=== PATIENT | male | born 1960 | race Caucasian/White ===

== ENCOUNTER 2020-08-30 13:34 | Outpatient (RCR) | payer BC, SELFPAY ==
[2020-08-30] MEDS: COVID-19 VACC, MRNA(PFIZER)/PF 30 MCG/0.3 ML SYRINGE IM (09:35)
[2020-09-20] MEDS: COVID-19 VACC, MRNA(PFIZER)/PF 30 MCG/0.3 ML SYRINGE IM (09:06)
== END 2020-08-30 23:59 ==
LOC: IMMUN 13:34
PROVIDERS: PCP Family Medicine; Visit Provider Family Medicine
DX: Z23 Encounter for immunization (principal)
CPT/HCPCS: 0001A; 0002A; 91300

== ENCOUNTER 2020-09-14 10:21 | Day surgery (SDC) | payer BC, SELFPAY ==
--- NOTE | 2020-09-13 09:19 | EKG12_ITS ---
Test Reason : PREOP Blood Pressure : / mmHG Vent. Rate : 064 BPM Atrial Rate : 064 BPM P-R Int : 194 ms QRS Dur : 078 ms QT Int : 418 ms P-R-T Axes : 063 075 070 degrees QTc Int : 431 ms Poor data quality, interpretation may be adversely affected Sinus rhythm with Premature atrial complexes Otherwise normal ECG Confirmed by SHARA FENG, ROSA ISELA ([id number]), newspaper or periodical editor TERA HAQUE ([id number]) on 09/13/2020 1:48:06 PM Referred By: PERRY Confirmed By:ROSA ISELA OLMEDO MD
[2020-09-13 10:04] LABS: Hematocrit 42.4 % (40-54); Hemoglobin 14.1 g/dL (13.0-16.5); Mean Corp Hgb Conc 33.3 g/dL (32-36); Mean Corpuscular Volume 90.2 fL (80-94); Mean Platelet Vol. 10.4 fl (6.2-12.0); Platelet Count 283 K/mm3 (150-450); RBC Distribution Width CV 12.7 % (11.6-14.6); RBC Distribution Width SD 42.1 fl (35.1-43.9); White Blood Count 5.5 K/mm3 (4.4-11.0)
[2020-09-14] VITALS (7 sets, daily range): BP systolic 127–141; BP diastolic 73–89; PULSE 57–72; RESP 16–20; TEMP 36.2–36.8; O2SAT 94–100; BMI 36.4
[2020-09-14] MEDS: Lactated Ringers 1,000 ML 100 ML IV ×2 (11:06→13:15)
[2020-09-14] MEDS: Bupivacaine Mpf 0.5% 30 ML VIAL (12:16)
--- NOTE | 2020-09-14 12:30 | LIP_PTH ---
PATIENT: MEMO GARRIDO LOC: [facility] [place] U#:[id number] AGE/SX: 60/M ROOM: RE09/14/[address]: Dr. Vincenzo Marks MD : 1960 BED: DIS: 09/14/2020 SPEC #: [id number] RECD: 09/14/20 13:55 STATUS: ANTONIO REQ #: [id number] JUAN CARLOS: 09/14/20 12:[address]: Vincenzo Marks DEPT: SURGICAL PATHOLOGY RECD BY: Lydia Cuellar ENTERED: 09/17/20 08:26 SP TYPE: LIPOMA OTHR DR: Dr. Lino Kim MD Tissues: Soft tissues, NOS Procedures: Surgery Specimen Level III HEADER OPERATION: Inguinal hernia with mesh PRE-OP DIAGNOSIS: Left inguinal hernia TISSUE SUBMITTED: Cord lipoma MICROSCOPIC DIAGNOSIS Cord lipoma, excision: Mature adipose tissue consistent with cord lipoma. AM:sarath 09/18/2020 MICROSCOPIC DESCRIPTION Slides are reviewed. GROSS DESCRIPTION Received in fixative is one container labeled with the patient's name and designated cord lipoma. The specimen consists of an irregular piece of yellow adipose tissue measuring 7 x 4 x 0.5 cm. Sections reveal yellow adipose cut surfaces without area of hemorrhage, necrosis or cystic degeneration. Legal Executive Assistant sections are submitted in one cassette. / SJ:sarath 09/17/20 TC:1 CPT: 94527
--- NOTE | 2020-09-14 13:33 | DCINST_ITS ---
Discharge Diet: Light diet - advance as tolerated Discharge Activity: Return to Normal Activity, May Drive - when you are no longer taking narcotic pain medications., May Shower - with the bandage in place 1-2 days after surgery. Lifting Restrictions: 20 pounds for 8 weeks. Additional Activity Instructions:: Climbing stairs is fine, walking is encouraged. Sitting in bed may be uncomfortable. Sitting up using your lateral muscles (sitting up sideways) is usually more comfortable. Do not drive, work heavy equipment of sign legal documents for 24 hours. If your hernia repair was an ingunial repair, you may have scrotal swelling, an ice pack and/or athletic support can provide more comfort. Pain medications may cause nausea, you should typically eat light foods as you take your pain medications. Pain medications may also cause constipation. If you have difficulty with this, discuss with your doctor. Call your doctor if your incision/area has: Continuous Slow Oozing, Sudden Increased Bleeding, Increased Pain/ Swelling, Increased Redness, Foul Smelling Discharge Call your doctor if you observe: Fever of 101 or Higher Suture Line Care: Avoid Pulling/Pushing, Avoid Pinching/Bending Additional Dressing/Incision Instructions:: Leave the operative bandage on for 2-3 days. When you remove the bandage, leave the steri-strips on place until your follow up appointment or they fall off. Allergies/Adverse Reactions: Allergies garlic Allergy (Verified 09/14/20 10:42) Other INTESTINAL DISCOMFORT Penicillins [PCN] Allergy (Verified 09/14/20 10:42) Rash Sulfa (Sulfonamide Antibiotics) Allergy (Verified 09/14/20 10:42) Rash Medications to take at Discharge Albuterol Aerosols [Ventolin Aerosols] 2.5 mg INHALATION Q6H PRN PRN 09/11/20 Fenofibrate 160 mg PO DAILY 09/11/20 Oxycodone HCl/Acetaminophen [Percocet 5/325] 1 - 2 tablet PO Q4H PRN PRN 6 Days #30 tablet 09/14/20 The following prescriptions were given: Oxycodone HCl/Acetaminophen [Percocet 5/325] 1 - 2 tablet PO Q4H PRN PRN 6 Days #30 tablet PRN Reason: Pain 1-10 Or Fever Transmission Status: Sent to [facility] Primary Care Physician: Lino Kim MD [Primary Care Provider] - Test Results: Test results from this visit will be discussed in further detail at your follow- up appointment, if applicable. Please Follow Up With: Mouna Weinberg, PA-C - [phone] When: Plan to have a follow up appointment in 7 days. Call to schedule.
--- NOTE | 2020-09-14 13:34 | OP.PCM_ITS ---
Problem List (1) Left inguinal hernia Status: Acute Report of Operation Date of Procedure: 09/14/20 Pre-Operative Diagnosis: Left inguinal hernia Post-Operative Diagnosis: Same Surgery/Procedure Performed:: Open left inguinal hernia repair with mesh Type of Anesthesia:: General Anesthesiologist: Delfin Germain Specimen's removed: Cord lipoma Estimated Blood Loss (mL): < 25 cc Description of Procedure: Patient was brought into the operating room. Placed in the supine position. Under excellent general trach intubation Jo catheter was placed left inguinal area was sterilely prepped and draped in usual fashion. Local was injected. Left inguinal incision was made. Dissection was carried down the superficial inferior epigastric vessels were tied off with 2-0 Vicryl. I dissected down to the fascia of the external oblique I opened this up the ilioinguinal nerve was identified but it was densely scarred into the hernia sac and I made a determination that it was going to have to be sacrificed in order for me to reduce this hernia. I transected the ilioinguinal nerve I then placed a wheat [place] retractor into the wound I reduced the hernia sac and contents back into the preperitoneal area I dissected the hernia sac free from the cord and vessel structures and placed it back into its preperitoneal space. I dissected cremasteric muscles with electrocautery. I placed an extra-large mesh plug into the internal ring suturing it with 0 Prolene suture. I then placed an onlay piece of mesh tacked it to the inguinal canal and floor tacking it to the pubic tubercle with 2 sutures of 0 Prolene I ran the one suture along the ilioinguinal ligament and then the superior suture along the transversalis fascia the cord and vessel structures came through the hugo ring I brought the sutures around and tied them superiorly to the hugo ring. There was too large of a defect in the hugo ring so I tighten this up with a single suture of 0 Prolene and then my defect in the hugo ring was only the diameter of my pinky finger. I had excellent hemostasis. I injected local throughout the wound. External oblique fascia was then brought together with 2-0 Vicryl. Lyubov's was brought together with interrupted 3-0 Vicryl deep dermals of 3-0 Vicryl then a running 4-0 Monocryl in the skin Steri-Strips were applied sterile dressings were applied and the patient tolerated the procedure well. - Admit VTE Documentation VTE Present on Admission: No VTE Mechan Device Prophylaxis: SCD's VTE Pharm Prophylaxis ordered?: No Reason prophylaxis not ordered:: Treatment Not Indicated
== END 2020-09-14 15:36 | disposition home or self-care (01) ==
LOC: SDC 10:22 → AC 10:23
PROVIDERS: Anesthesiology; PCP Family Medicine; Visit Provider Surgery
PROC: (CPT 49505; principal; 2020-09-14 12:15)
DX: K40.90 Unilateral inguinal hernia, without obstruction or gangrene, not specified as recurrent (principal); Z20.828 Contact with and (suspected) exposure to other viral communicable diseases; K58.9 Irritable bowel syndrome, unspecified; Z79.899 Other long term (current) drug therapy; G47.33 Obstructive sleep apnea (adult) (pediatric); E66.9 Obesity, unspecified; Z68.36 Body mass index [BMI] 36.0-36.9, adult
CPT/HCPCS: 00830; 49505; 36415; 85027; 87426; 88304; 93005; C9803; J7120; C1781; J2405

== ENCOUNTER 2021-05-03 08:22 | Day surgery (SDC) | payer BC, SELFPAY ==
[2021-05-03] VITALS (8 sets, daily range): BP systolic 119–151; BP diastolic 72–94; PULSE 56–76; RESP 16; TEMP 36.1–36.7; O2SAT 93–100; BMI 37.2
[2021-05-03] MEDS: Lactated Ringers 1,000 ML 15 ML IV (08:35)
--- NOTE | 2021-05-03 10:15 | HP.PCM_ITS ---
History and Physical Date of Admission: 05/03/21 HISTORY AND PHYSICAL ? Jovan Wolf 1960 ? ? REFERRING PHYSICIAN: Self ? CHIEF COMPLAINT: Consult (Consult Umbilical Hernia) ? HPI: Jovan is a 61 year old male with a complaint of a bulge in his right inguinal region and mid abdomen. The patient notes discomfort in this area with lifting and straining. The symptoms have maintained, over the past few months. ? The patient notes no symptoms of bowel obstruction and denies nausea or vomiting. ? PAST MEDICAL HISTORY PAST MEDICAL HISTORY Diagnosis Date ? Adjustment disorder with anxious mood 10/14/2018 ? Herniation of intervertebral disc between L4 and L5 05/15/2018 ? IBS (irritable bowel syndrome) ? ? Obesity, Class II, BMI 35-39.9 03/30/2019 ? RIGOBERTO (obstructive sleep apnea) 02/09/2019 ? Seeing Dr. Lopez ? Squamous cell skin cancer 07/23/2020 ? Left mid, medial back excised 07/2020 ? Umbilical hernia without obstruction or gangrene 05/15/2018 ? Viral warts 05/15/2018 ? left axilla ? ? PAST SURGICAL HISTORY PAST SURGICAL HISTORY Procedure Laterality Date ? COLONOSCOPY ? 05/22/2011 ? nl, repeat 10 yrs ? HERNIA REPAIR HX ? ? ? INGUINAL HERNIA REPAIR HX Left 09/14/2020 ? REVISE THUMB TENDON ? CURRENT MEDICATIONS Current Outpatient Medications Medication Sig ? Fenofibrate (LOFIBRA) 160 mg tablet Take 1 tablet by mouth once daily. ? albuterol HFA (PROVENTIL HFA, VENTOLIN HFA) 90 mcg/actuation inhaler inhale 2 puffs up to four times a day if needed ? No current facility-administered medications for this visit. ? ? ALLERGIES: Penicillin, Sulfa Drugs [Sulfa (Sulfonamide Antibiotics)], and Garlic Oil ? PERSONAL HISTORY: SOCIAL HISTORY Social History ? Tobacco Use ? Smoking status: Never Smoker ? Smokeless tobacco: Never Used Substance Use Topics ? Alcohol use: Not on file ? Drug use: Not on file ? FAMILY HISTORY: FAMILY HISTORY FAMILY HISTORY Problem Relation Age of Onset ? Diabetes Father ? ? Type 1 ? Prostate Cancer Brother ? ? 05/2016 ? Hyperlipidemia Brother ? ? Kidney Disease Maternal Aunt ? ? Colon Cancer No Family History ? ? Breast Cancer No Family History ? ? Ovarian cancer No Family History ? ? Uterine Cancer No Family History ? ? Coronary Artery Disease No Family History ? ? Hypertension No Family History ? ? Seizures No Family History ? ? Stroke No Family History ? ? Thyroid No Family History ? ? ? REVIEW OF SYMPTOMS: The review of systems data was entered by the nurse and reviewed by me ? Nursing Notes: Jordan Asuncion BRAY 03/14/2021 3:42 PM Signed REVIEW OF SYSTEMS: General: The patient denies fatigue, denies weight loss, denies weight gain, denies feeling hot, and denies feelings of cold. Eyes: The patient denies glaucoma, denies eye injury/surgery, does not wear glasses or contacts. Ear/Nose/Throat: The patient NOTES allergies, denies hayfever, denies ear infections, and denies bloody noses. Cardiovascular: The patient denies chest pain, denies heart disease, denies high blood pressure,denies cardiac stent, denies prior heart attack, denies irregular heart beat, NOTES high cholesterol, denies poor circulation, denies heart failure, other cardiac issues, denies claudication, denies cold feet, denies peripheral arterial stent. Respiratory: The patient denies tuberculosis, denies pneumonia, denies frequent cough, denies pulmonary embolism, denies shortness of breath, and denies coughing up blood. Gastrointestinal: The patient denies difficulty swallowing, denies acid reflux, denies ulcers, denies vomiting, denies jaundice/hepatitis, denies gallbladder problems, denies black or tarry stools, denies hemorrhoids, denies bleeding from rectum, denies diverticulitis, denies constipation, denies d iarrhea, denies loss of stool control, and NOTES hernias. Kidney/Bladder: The patient denies kidney stones, denies urine infections, and denies bloody urine. Skin: The patient NOTES a history of skin cancer, denies bleeding/changing moles, and denies a history of skin rash. Neurologic: The patient denies a history of epilepsy/convulsions, denies headaches, denies head/spinal injuries, and denies stroke/TIA. Psychiatric: The patient denies psychiatric medications, denies depression, and denies voices, denies substance abuse. Endocrine: The patient denies thyroid disorders, denies diabetes, and denies hormonal problems. Hematologic: The patient denies a history of bruising, denies bleeding, and denies anemia, denies blood clots. Infections: The patient denies a history of measles and mumps, denies rheumatic fever, and denies sexually transmitted diseases. Musculoskeletal: The patient NOTES back pain/injury, NOTES back problems, denies sciatica, denies knee/foot trouble, denies arthritis, or denies gout. ? ? When was patient's last Mammogram screening? N/A ? Last Colonoscopy: 2010 ? Jordan Roland LPN ? PHYSICAL EXAMINATION: ? General: The patient is 61 year old male, well nourished, well hydrated in no acute distress. The patient is oriented to time, place, and person. ? VITALS: Pulse 85, temperature 36.4 ?C (97.6 ?F), weight 123.5 kg (272 lb 3.2 oz), SpO2 96 %. Body mass index is 37.96 kg/m?. ? HEENT: Normal cephalic, ataumatic, pupils are equally round, sclera are anicteric, mucous membranes are moist, oropharynx is clear. Neck has no masses, asymmetry or lymphadenopathy. Thyroid is unremarkable. ? Respiratory: Clear to auscultation and percussion. Normal respiratory excursion and pattern. ? Cardiac: Examination is regular rate and rhythm. ? Abdominal exam: Soft, nontender, with no palpable masses. No hepatosplenomegaly. A moderate reducible Ventral hernia at his umbilical area. ? Rectal exam: exam deferred ? Extremities: no clubbing, cyanosis or edema. No adenopathy. ? Other: ? ? LABORATORY VALUES: As Noted ? RADIOLOGIC STUDIES: As Noted ? Assessment IMPRESSION: Ventral hernia without obstruction or gangrene (primary encounter diagnosis) ? PLAN: My plan is to perform a ventral hernia repair with mesh. The planned surgical procedure was discussed extensively with the patient. The risks, benefits, anticipated outcomes and possible complications were mentioned. [facility] that all hernia repair surgery has a chance of recurrence and/or chronic post operative pain. My staff has also explained the procedure in understandable terms and the patient was given the option to take printed material concerning the planned procedure. The patient had the opportunity to ask questions concerning the planned procedure. The patient freely consents to the planned procedure. ? My findings have been communicated to Dr. Lino Kim MD via shared medical record. This note will be forwarded to Dr. Lino Kim MD. ? Diagnoses: (K43.9) Ventral hernia without obstruction or gangrene (primary encounter diagnosis) ? Anticipated CPT Code: ventral hernia repair with mesh - 98819-286+ [id number] ? Anticipated Anesthetic: General ? Patient weight: Pulse 85, temperature 36.4 ?C (97.6 ?F), weight 123.5 kg (272 lb 3.2 oz), SpO2 96 %. BMI: Body mass index is 37.96 kg/m?. ? Planned antibiotic: clindamycin 900mg IVPB home health occupational therapist to OR ? SCDs needed - Yes Return to Clinic: The patient is instructed to follow-up with me 1 week post operatively. ? COVID (Procedure Consent) Procedure Criteria ? Procedure Criteria: Yes Elective The surgeon/proceduralist and patient have discussed in detail the risk of exposure to and/or potential harm posed by the COVID-19 virus with having a surgery/procedure at this time versus the risk of? delaying the surgery/procedure. It is not possible to know either the risk of delaying the surgery or procedure or chance of getting an infection with perfect accuracy, but a joint decision was made between the patient and the surgeon/proceduralist ?to proceed at this time with the scheduled surgery/procedure as indicated on the consent form. ? ? Vincenzo Marks III, MD I have re-examined the patient. There are no clinical changes since date of exam.
[2021-05-03] MEDS: BUPIVACAINE LIPOSOME/PF 20 ML VIAL OPERA.SITE (10:44)
--- NOTE | 2021-05-03 11:11 | OP.PCM_ITS ---
Problems Associated Problem List Diagnoses (1) Ventral hernia without obstruction or gangrene: Report of Operation Date of Procedure: 05/03/21 Pre-Operative Diagnosis: Ventral hernia Post-Operative Diagnosis: Same Surgery/Procedure Performed:: Ventral hernia repair with mesh Surgeon: Vincenzo Marks facility practice specialist: James Thorpe Type of Anesthesia: General Anesthesiologist: Delfin Germain Drains: None Estimated Blood Loss (mL): < 25 cc Description of Procedure: Patient was brought into the operating room. Placed in the supine position. Under excellent general anesthetic the abdomen was sterilely prepped and draped in usual fashion. Local was injected above the umbilicus curvilinear incision was made. Dissection was carried down patient was noted to have a ventral hernia which I was able to dissect away from the good fascia and placed back into its preperitoneal space. I also dissected an umbilical hernia free as well and continued the dissection in the preperitoneal space inferior to the umbilicus. I fashioned the 12 cm mesh into the wound. I tacked it in 4 places with a protacker. I then circumferentially sutured the mesh down to the good fascia using #1 Nurolon's. I was very pleased that the mesh laid completely flat in the preperitoneal area. I injected more Exparel into the fascia. The subcu was then brought together with 2-0 Vicryl deep dermals of 3-0 Vicryl in a running 4-0 Monocryl. Steri-Strips were applied sterile dressings were applied and the patient tolerated the procedure well. Grafts/Implants Used: Ventrio ST hernia patch Ref# [id number] lot#[id number] Admit VTE Documentation VTE Present on Admission: No VTE Mechan Device Prophylaxis: SCD's VTE Pharm Prophylaxis ordered?: No Reason prophylaxis not ordered:: Treatment Not Indicated
--- NOTE | 2021-05-03 11:18 | DCINST_ITS ---
Discharge Instructions Procedure Hernia Diet Discharge Diet: Light diet - advance as tolerated Activity Discharge Activity: Return to Normal Activity, May Drive (when you are no longer taking narcotic pain medications.) and May Shower (with the bandage in place 1-2 days after surgery.) Lifting Restrictions: 20 pounds for 8 weeks. Additional Activity Instructions:: Climbing stairs is fine, walking is e ncouraged. Sitting in bed may be uncomfortable. Sitting up using your lateral muscles (sitting up sideways) is usually more comfortable. Do not drive, work heavy equipment of sign legal documents for 24 hours. If your hernia repair was an ingunial repair, you may have scrotal swelling, an ice pack and/or athletic support can provide more comfort. Pain medications may cause nausea, you should typically eat light foods as you take your pain medications. Pain medications may also cause constipation. If you have difficulty with this, discuss with your doctor. Dressing / Incision Call your doctor if your incision/area has: Continuous Slow Oozing, Sudden Increased Bleeding, Increased Pain/ Swelling, Increased Redness and Foul Smelling Discharge Call your doctor if you observe: Fever of 101 or Higher Suture Line Care: Avoid Pulling/Pushing and Avoid Pinching/Bending Additional Dressing/Incision Instructions:: Leave the operative bandage on for 2-3 days. When you remove the bandage, leave the steri-strips on place until your follow up appointment or they fall off. Follow Up Care Please Follow Up With: Mouna Weinberg PA-C When: Call office to schedule an appointment to be seen in 7 days. Test Results: Test results from this visit will be discussed in further detail at your follow-up appointment, if applicable. Discharge Plan Admission Attending Provider: Vincenzo Marks Primary Care Provider: Lino Kim Discharge Orders/Prescriptions Prescriptions: New oxycodone-acetaminophen [Endocet] 5-325 mg tablet 1 tab PO Q6H PRN (Reason: pain) 5 Days Qty: 20 RF: 0 No Action fenofibrate 160 MG tablet 160 mg PO DAILY RF: 0 cromolyn [Nasal Allergy Control] 5.2 mg/spray (4 %) [place],Non-Aerosol 1 spray INTRANASAL PRN PRN (Reason: Nasal Congestion) RF: 0 albuterol sulfate 90 mcg/actuation Hfa Aerosol Inhaler 1 inh INHALATION Q6H PRN (Reason: SOB) RF: 0 Referrals / Follow Up: Lino Kim MD [Primary Care Provider] - Mouna Weinberg PA-C [PHYSICIAN REAMING MACHINE TENDER] - Disposition Discharge Orders: Discharge Patient (Routine); Ordered 05/03/21 Ordered By: Dr. Vincenzo Marks
== END 2021-05-03 15:02 ==
LOC: SDC 08:28 → AC 08:30
PROVIDERS: PCP Family Medicine; Referring Provider Surgery; Visit Provider Surgery
PROC: (CPT 49560; principal; 2021-05-03 10:15)
DX: K43.9 Ventral hernia without obstruction or gangrene (principal); E66.9 Obesity, unspecified; Z68.37 Body mass index [BMI] 37.0-37.9, adult; G47.33 Obstructive sleep apnea (adult) (pediatric); K58.9 Irritable bowel syndrome, unspecified; M19.90 Unspecified osteoarthritis, unspecified site; Z85.828 Personal history of other malignant neoplasm of skin
CPT/HCPCS: 49560; 49568; J7120; C1781; J2405; J3490

== ENCOUNTER 2021-07-25 14:34 | Outpatient (CLI) | payer BC, SELFPAY ==
[2021-07-26 16:38] LABS: PSA,Total - Annual Screen 2.86 ng/mL (0.00-4.00)
== END 2021-07-25 23:59 | disposition home or self-care (01) ==
LOC: LAB 07-30 12:25
PROVIDERS: PCP Family Medicine; Visit Provider Family Medicine
DX: R73.09 Other abnormal glucose (principal)
CPT/HCPCS: 36415; 84153; 84443; G0103

== ENCOUNTER 2021-07-30 11:52 | Outpatient (CLI) | payer BC, SELFPAY ==
[2021-07-30 16:27] LABS: T4 Free Direct 0.71 ng/dL (0.76-1.46); Thyroid Stim Hormone (TSH) 5.92 uIU/mL (0.358-3.74)
[2021-08-01 16:15] LABS: Thyroid Peroxidase AB 36 IU/mL (0-34)
== END 2021-07-30 23:59 | disposition home or self-care (01) ==
PROVIDERS: PCP Family Medicine; Visit Provider Family Medicine
DX: R79.89 Other specified abnormal findings of blood chemistry (principal)
CPT/HCPCS: 36415; 84439; 84443; 86376

== ENCOUNTER 2021-09-20 08:59 | Outpatient (CLI) | payer BC, SELFPAY ==
[2021-09-20 11:30] LABS: Thyroid Stim Hormone (TSH) 5.09 uIU/mL (0.358-3.74)
== END 2021-09-20 23:59 | disposition home or self-care (01) ==
LOC: LAB 09:00
PROVIDERS: PCP Family Medicine; Referring Provider Family Medicine; Visit Provider Family Medicine
DX: E03.9 Hypothyroidism, unspecified (principal)
CPT/HCPCS: 36415; 84443

== ENCOUNTER → 2022-02-11 | Outpatient (CLI) | payer BC, SELFPAY ==
[2022-02-11 12:46] LABS: Absolute Lymphocyte Count 2.67 X10^3/uL (0.83-4.51); Absolute Neutrophil Count 4.4 X10^3/uL (2.0-7.7); Basophil# 0.06 X10^3/uL; Basophil% 0.7 % (0-1); Eosinophil# 0.37 X10^3/uL; Eosinophils% 4.4 % (0-5); Hematocrit 40.4 % (40-54); Hemoglobin 13.9 g/dL (13.0-16.5); Lymphocyte # 2.67 X10^3/ul (0.83-4.51); Lymphocyte % 31.4 % (19-41); Mean Corp Hgb Conc 34.4 g/dL (32-36); Mean Corpuscular Hgb 30.2 pg (27.0-32.0); Mean Corpuscular Volume 87.8 fL (80-94); Mean Platelet Vol. 10.5 fl (6.2-12.0); Monocyte% 11.8 % (0-10); NRBC Flagged by Analyzer 0 % (0-5); Neutrophil # 4.37 X10^3/uL (2.7-7.7); Neutrophil % 51.3 % (47-70); Platelet Count 291 K/mm3 (150-450); RBC Distribution Width CV 13.1 % (11.6-14.6); RBC Distribution Width SD 42.1 fl (35.1-43.9); White Blood Count 8.5 K/mm3 (4.4-11.0)
[2022-02-11 13:33] LABS: AST(SGOT) 27 U/L (15-37); Alanine Aminotransfer ALT/SGPT 49 U/L (16-61); Alkaline Phosphatase 52 U/L (45-117); Anion Gap 7 (5-15); BUN 18 mg/dL (7-18); BUN/Creat Ratio 13.2 RATIO (10-20); Calcium,Total 9.3 mg/dL (8.5-10.1); Chloride 105 mmol/L (98-107); Creatinine, Serum 1.36 mg/dL (0.70-1.30); EST Glomerular Filtration Rate 56 mL/min (>60); Est Glom Filt Rate - Afr Amer 68 mL/min (>60); Globulin 4.1 g/dL (2.2-4.2); Glucose 94 mg/dL (74-106); Potassium 3.9 mmol/L (3.5-5.1); Protein, Total 8.1 g/dL (6.4-8.2); Sodium Level 140 mmol/L (136-145); T4 Free Direct 0.85 ng/dL (0.76-1.46); Thyroid Stim Hormone (TSH) 5.05 uIU/mL (0.358-3.74)
== END | disposition home or self-care (01) ==
LOC: LAB 12:09
PROVIDERS: Registered Nurse; PCP Family Medicine; Referring Provider Family Medicine; Visit Provider Family Medicine
DX: R73.03 Prediabetes (principal); E03.9 Hypothyroidism, unspecified; R42 Dizziness and giddiness
CPT/HCPCS: 36415; 80053; 83036; 84439; 84443; 85025

== ENCOUNTER → 2022-04-01 | Outpatient (CLI) | payer BC, SELFPAY ==
[2022-04-01 11:13] LABS: T4 Free Direct 0.93 ng/dL (0.76-1.46); Thyroid Stim Hormone (TSH) 4.58 uIU/mL (0.358-3.74)
== END | disposition home or self-care (01) ==
LOC: LAB 09:30
PROVIDERS: PCP Family Medicine; Referring Provider Family Medicine; Visit Provider Family Medicine
DX: R79.89 Other specified abnormal findings of blood chemistry (principal)
CPT/HCPCS: 36415; 84439; 84443

== ENCOUNTER 2022-05-06 07:55 | Day surgery (SDC) | payer OTHER, SELFPAY ==
[2022-05-06 08:44] VITALS: BP 149/89; PULSE 58; RESP 16; TEMP 36.8; O2SAT 97; BMI 37.5
[2022-05-06] MEDS: Lactated Ringers 1,000 ML 15 ML IV (08:46)
--- NOTE | 2022-05-06 08:54 | H&P.OPEN ---
HPI - General HPI Narrative MEMO GARRIDO, is a 62 M who presents for screening colonoscopy. His last colonoscopy was about 12 years ago. There were no polyps present. The patient denies any abdominal pain or blood in the stool. No family history of colon cancer. [facility] Medical History (Updated 04/30/22 @ 13:46 by Jess Soliman) Arthritis Back pain CPAP (continuous positive airway pressure) dependence CPAP (continuous positive airway pressure) dependence Former smoker High cholesterol History of IBS History of stress test Hypothyroid Left inguinal hernia Marijuana use Shortness of breath on exertion Sleep apnea Thyroid disease Ventral hernia without obstruction or gangrene Wears glasses Home Medications fenofibrate 160 mg tablet 160 mg PO DAILY 09/11/20 [History Last Taken Unknown] albuterol sulfate 90 mcg/actuation aerosol inhaler 1 inh inhalation Q6H PRN SOB 04/29/21 [History Last Taken Unknown] levothyroxine 75 mcg tablet (Levoxyl) 75 mcg PO DAILY 04/15/22 [History Last Taken 05/06/22] Allergy/AdvReac Type Severity Reaction Status Date / Time Penicillins [PCN] Allergy Rash Verified 04/30/22 13:35 Sulfa (Sulfonamide Allergy Rash Verified 04/30/22 13:35 Antibiotics) garlic AdvReac Other Verified 04/30/22 13:35 Surgical History (Updated 04/30/22 @ 13:46 by Jess Soliman) History of colonoscopy Hx of left inguinal hernia repair Hx of thumb surgery Social History Smoking Status: Former smoker Past Medical/Surgical History Planned Operation Planned Operative Procedure/s: COLONOSCOPY-OA S.O.S: No Previous Hospitalizations/Surgeries HX Hospitalizations: No HX of Surgeries: R EXTENSOR TENDON REPAIR -LOCAL COLONOSCOPY Any Problems With Anesthesia: No You/Your Family Experience Fever (Hyperthermia) With Anes: No Cholinesterase deficiency: No Cardiovascular Hx Chest Pain within Last 2 months: No Hx of Irregular Heartbeat and/or Afib: No Hx Heart Attack: No Hx Congestive Heart Failure: No Hx Rheumatic Fever: No Hx Hypertension: No Hx Internal Defibrillator: No Hx Pacemaker: No Hx Cardiac Catheterization: No Hx Cardiac Surgery/Stents/Etc.: No Hx Stress Test: No Hx Pain in Legs when Walking/Leg Cramps: Yes Respiratory Chronic Cough: No HX of Shortness of Breath: Yes Hoarseness: No Hx Chronic Obstructive Pulmonary Disease (COPD): No Hx Asthma: No Hx Emphysema: No Hx Sleep Apnea: Yes CPAP: Yes BIPAP: No Hx Respiratory Tract Infection/Cold (presently): No Result (for STOP score): Positive Hx Smoking: No Smoking Status: Former smoker Gastrointestinal Hx Gastroesophageal Reflux: No Hx Gastrointestinal Disorders: Yes (IBS) Hx Gastrointestinal Bleed: No Hx Ulcer: No Hx Hiatal Hernia: No Difficulty Chewing/Swallowing: No Special diet followed at home: No Hx Unplanned Weight Loss of 20#: No HX Unplanned Weight Gain of 20#: No Neurological Hx Seizures: No HX Syncope/Blackout Spells/Unconsciousness: No Hx Transient Ischemic Attacks (TIA): No Hx Multiple Sclerosis: No Hx Parkinson's Disease: No Hx Head/Neck Injury: No Hx Headaches: No Hx Back Injury/Pain: Yes (L4-L5 HERNIATION W/ RUPTURE 05/1999) Recent Onset of Speech Difficulty: No Restless Legs: No Does patient have nerve stimulator: No Blood Disorder Hx Leukemia: No Bleeding Tendencies: No Hx Deep Vein Thrombosis: No Hx High Cholesterol: Yes Blood Transmitted Disease: No Hx Hepatitis: No Hx Cirrhosis: No Hx Anemia: No Hx Blood Disorders: No Genitourinary Hx Renal Disease: No Musculoskeletal Hx Arthritis: Yes Hx Rheumatoid Arthritis: No Hx Gout: No Recent Onset of an Orthopedic Problem: No Endocrine Hx Diabetes: No Thyroid Disease: No Hx Steroid Therapy: No Psycho/Social Hx Substance Use: No Hx Alcohol Use: No Hx Anxiety: No Hx Depression: No Mental Illness: No Hx Dementia: No Miscellaneous Hx Cancer: No Recent Exposure to Contagious Disease: No Hx of C-Diff: No Any Loose Teeth: No Allergies Penicillins [PCN] Allergy (Verified 04/30/22 13:35) Rash Sulfa (Sulfonamide Antibiotics) Allergy (Verified 04/30/22 13:35) Rash garlic Adverse Reaction (Verified 04/30/22 13:35) Other INTESTINAL DISCOMFORT Discharge Is Pt Admitted From a Senior Care, or a [facility]: No After D/C, Where Do you Plan to Go: Return Home From the PAT History Number of Risk Factors: 2 Vital Signs Vital Signs Vital Signs: 05/06/22 08:42 05/06/22 08:44 Temperature 98.2 F Temperature Source Temporal Pulse Rate 58 L Respiratory Rate 16 Respiratory Pattern Normal Blood Pressure 149/89 H Blood Pressure Mean 109 Blood Pressure Source Monitor Blood Pressure Position Semi-Fowlers Blood Pressure Location Left Arm Pulse Ox 97 Oxygen Delivery Method Room Air Weight Weight: 269 lb 6.478 oz Body Mass Index (BMI) 37.5 Physical Exam Const alert and oriented x3 HEENT normocephalic Eyes PERRL Resp normal respiratory effort and normal air movement Cardio regular rate and regular rhythm GI soft to palpation, non-tender and non-distended Extremity normal to inspection Assessment & Plan Assessment/Plan (1) Encounter for screening for malignant neoplasm of colon: PLAN: I explained endoscopy in detail to the patient. I explained the risks including but not limited to stroke or heart attack with anesthesia, perforation of the GI tract, bleeding, infection. I explained that any of these could necessitate further emergency surgery. The patient understands and all questions were answered sufficiently. The patient wishes to proceed with procedure. Tex Moon MD Pager: [facility] [address] [place] [address] [address] [place] [address] Office: Surgery Risks - Colonoscopy Risks Include but are not Limited To: Risks include but are not limited to: Bleeding, perforation requiring further surgery, inability to complete colonoscopy requiring barium enema.
--- NOTE | 2022-05-06 09:26 | OP.COLON_ITS ---
Patient Name: Jovan Wolf Procedure Date: 05/06/2022 9:01 AM Date of : 1960 Age: 62 Procedure: Colonoscopy Indications: Screening for colorectal malignant neoplasm Providers: Tex Moon MD Medicines: Monitored Anesthesia Care Patient Profile: This is a 62 year old male. Refer to note in patient chart for documentation of history and physical. Last Colonoscopy: more than 10 years ago. Complications: No immediate complications. Procedure: Pre-Anesthesia Assessment: - Prior to the procedure, a History and Physical was performed, and patient medications and allergies were reviewed. The patient's tolerance of previous anesthesia was also reviewed. The risks and benefits of the procedure and the sedation options and risks were discussed with the patient. All questions were answered, and informed consent was obtained. Prior Anticoagulants: The patient has taken no previous anticoagulant or antiplatelet agents. After reviewing the risks and benefits, the patient was deemed in satisfactory condition to undergo the procedure. After I obtained informed consent, the scope was passed under direct vision. Throughout the procedure, the patient's blood pressure, pulse, and oxygen saturations were monitored continuously. The Colonoscope was introduced through the anus and advanced to the cecum, identified by appendiceal orifice and ileocecal valve. The colonoscopy was performed without difficulty. The patient tolerated the procedure well. The quality of the bowel preparation was good. Scope In: 9:12:30 AM Scope Withdrawal Time 0 hours 6 minutes 4 seconds Scope Out: 9:24:24 AM Total Procedure Duration Time 0 hours 11 minutes 54 seconds Findings: The entire examined colon appeared normal on direct and retroflexion views. Impression: - The entire examined colon is normal on direct and retroflexion views. - No specimens collected. Recommendation: - Discharge patient to home. - Resume previous diet. - Continue present medications. - Repeat colonoscopy in 10 years for screening purposes. Procedure Code(s): --- Professional --- 04065, Colonoscopy, flexible; diagnostic, including collection of specimen(s) by brushing or washing, when performed (separate procedure) Diagnosis Code(s): --- Professional --- Z12.11, Encounter for screening for malignant neoplasm of colon CPT copyright 2017 [employer]. All rights reserved. The codes documented in this report are preliminary and upon tire worker review may be revised to meet current compliance requirements. Tex Moon MD 05/06/2022 9:26:37 AM This report has been signed electronically. Number of Addenda: 0 Note Initiated On: 05/06/2022 9:01 AM
--- NOTE | 2022-05-06 09:27 | OP.CCLET_ITS ---
05/06/2022 Lino Kim MD Re : Colonoscopy procedure for Jovan Wolf Dear Dr. Kim This procedure was performed on Friday, May 06, 2022. My impressions and recommendations are as follows: Impressions : - The entire examined colon is normal on direct and retroflexion views. - No specimens collected. Recommendations : - Discharge patient to home. - Resume previous diet. - Continue present medications. - Repeat colonoscopy in 10 years for screening purposes. My findings are described in the full procedure note, which is enclosed. If I can be of further assistance, please feel free to contact me at Doctor phone number(s): , Work: . Sincerely, Tex Moon MD 05/06/2022 9:26:37 AM This report has been signed electronically.
[2022-05-06 09:30] VITALS: BP 101/82; BP 149/89; PULSE 65; RESP 16; TEMP 37.1; O2SAT 96
[2022-05-06 09:35] VITALS: BP 104/72; BP 149/89; PULSE 66; RESP 16; O2SAT 95
[2022-05-06 09:40] VITALS: BP 105/72; BP 149/89; PULSE 65; RESP 16; O2SAT 96
[2022-05-06 09:45] VITALS: BP 106/70; BP 149/89; PULSE 62; RESP 16; TEMP 36.6; O2SAT 99
[2022-05-06 10:00] VITALS: BP 149/89
== END 2022-05-06 10:26 | disposition home or self-care (01) ==
LOC: EN 08:01 → AC 08:01
PROVIDERS: PCP Family Medicine; Referring Provider Family Medicine; Visit Provider Surgery
PROC: 0DJD8ZZ Inspection of Lower Intestinal Tract, Via Natural or Artificial Opening Endoscopic (ICD-10-PCS; CPT 45378; principal; 2022-05-06 08:55)
DX: Z12.11 Encounter for screening for malignant neoplasm of colon (principal); E03.9 Hypothyroidism, unspecified; E78.00 Pure hypercholesterolemia, unspecified; G47.30 Sleep apnea, unspecified; Z87.891 Personal history of nicotine dependence; Z79.899 Other long term (current) drug therapy
CPT/HCPCS: G0121; J7120; J2405

== ENCOUNTER → 2022-06-10 | Outpatient (CLI) | payer OTHER, SELFPAY ==
[2022-06-10 11:21] LABS: T4 Free Direct 0.94 ng/dL (0.76-1.46); Thyroid Stim Hormone (TSH) 4.39 uIU/mL (0.358-3.74)
[2022-06-11 12:48] LABS: Thyroid Peroxidase AB 23 IU/mL (0-34)
== END | disposition home or self-care (01) ==
LOC: LAB 09:08
PROVIDERS: PCP Family Medicine; Referring Provider Family Medicine; Visit Provider Family Medicine
DX: R79.89 Other specified abnormal findings of blood chemistry (principal)
CPT/HCPCS: 36415; 84439; 84443; 86376

== ENCOUNTER → 2022-08-06 | Outpatient (CLI) | payer OTHER, SELFPAY ==
[2022-08-06 08:51] LABS: Bacteria 0 SEEN /hpf (None Seen); Mucous, Urine 0 SEEN /hpf (<or=2+); Red Blood Cells-Urine 0 SEEN /hpf (0-5); Squamous Epithelial Cells - UA 0 SEEN /hpf (0-5); White Blood Cells 0 SEEN /hpf (0-5)
[2022-08-06 10:18] LABS: Color, Urine Yellow (Yellow); Glucose, Dipstick Normal (Normal); Ketone-Dipstick Negative (Negative); Leukocyte Esterase-Dipstick Negative /ul (Negative); Nitrite-Dipstick Negative (Negative); Occult Blood-Urine Negative /ul (Negative); Protein-Dipstick Negative (Negative); Urine Bilirubin Dipstick Negative (Negative); Urine Clarity Clear (Clear); Urine Urobilinogen Normal (Normal)
[2022-08-06 10:25] LABS: Absolute Lymphocyte Count 2.37 X10^3/uL (0.83-4.51); Absolute Neutrophil Count 3.3 X10^3/uL (2.0-7.7); Basophil# 0.04 X10^3/uL; Basophil% 0.6 % (0-1); Eosinophil# 0.31 X10^3/uL; Eosinophils% 4.6 % (0-5); Hemoglobin 14.3 g/dL (13.0-16.5); Lymphocyte # 2.37 X10^3/ul (0.83-4.51); Lymphocyte % 35.3 % (19-41); Mean Corp Hgb Conc 33.3 g/dL (32-36); Mean Corpuscular Hgb 29.7 pg (27.0-32.0); Mean Corpuscular Volume 89.4 fL (80-94); Monocyte% 10.4 % (0-10); NRBC Flagged by Analyzer 0 % (0-5); Neutrophil # 3.28 X10^3/uL (2.7-7.7); Platelet Count 292 K/mm3 (150-450); RBC Distribution Width SD 42.7 fl (35.1-43.9); Red Blood Count 4.81 M/mm3 (4.6-6.2); White Blood Count 6.7 K/mm3 (4.4-11.0)
[2022-08-06 11:36] LABS: ALB/GLOB Ratio 1.1 RATIO (0.9-2.4); AST(SGOT) 26 U/L (15-37); Alanine Aminotransfer ALT/SGPT 46 U/L (16-61); Albumin, Serum 4.2 g/dL (3.2-5.0); Alkaline Phosphatase 52 U/L (45-117); Anion Gap 7 (5-15); BUN 22 mg/dL (7-18); BUN/Creat Ratio 17.7 RATIO (10-20); Calcium,Total 9.8 mg/dL (8.5-10.1); Chloride 106 mmol/L (98-107); Cholesterol 168 mg/dL (200); Creatinine, Serum 1.24 mg/dL (0.70-1.30); EST Glomerular Filtration Rate 63 mL/min (>60); Est Glom Filt Rate - Afr Amer 76 mL/min (>60); Globulin 3.9 g/dL (2.2-4.2); Glucose 110 mg/dL (74-106); High Density Lipoprotein 41 mg/dL; Potassium 3.9 mmol/L (3.5-5.1); Protein, Total 8.1 g/dL (6.4-8.2); Sodium Level 141 mmol/L (136-145); Triglycerides 145 mg/dL; Very Low Density Lipoprotein 29 mg/dL (5-40)
[2022-08-07 22:59] LABS: PSA, Free 0.93 ng/mL
== END | disposition home or self-care (01) ==
LOC: LAB 08:47
PROVIDERS: PCP Family Medicine; Referring Provider Family Medicine; Visit Provider Family Medicine
DX: E78.5 Hyperlipidemia, unspecified (principal); R73.09 Other abnormal glucose; E03.9 Hypothyroidism, unspecified; R97.20 Elevated prostate specific antigen [PSA]; Z79.899 Other long term (current) drug therapy
CPT/HCPCS: 36415; 80053; 80061; 81001; 83036; 84153; 84154; 85025

== ENCOUNTER → 2022-08-20 | Outpatient (CLI) | payer OTHER, SELFPAY ==
[2022-08-20 10:09] LABS: Thyroid Stim Hormone (TSH) 4.53 uIU/mL (0.358-3.74)
== END | disposition home or self-care (01) ==
LOC: LAB 08:26
PROVIDERS: PCP Family Medicine; Referring Provider Family Medicine; Visit Provider Family Medicine
DX: E03.9 Hypothyroidism, unspecified (principal)
CPT/HCPCS: 36415; 84443

== ENCOUNTER 2022-10-15 15:35 | Outpatient (CLI) | payer OTHER, SELFPAY | END 2022-10-15 23:59 | disposition home or self-care (01) | LOC: LAB 15:36 | PROVIDERS: PCP Family Medicine; Referring Provider Family Medicine; Visit Provider Family Medicine | DX: Z00.00 Encounter for general adult medical examination without abnormal findings (principal) | CPT/HCPCS: 36415; 84443 ==

== ENCOUNTER → 2023-02-12 | Outpatient (CLI) | payer OTHER, SELFPAY ==
[2023-02-12 10:40] LABS: Anion Gap 4 (5-15); BUN 17 mg/dL (7-18); BUN/Creat Ratio 12.9 RATIO (10-20); Calcium,Total 9.2 mg/dL (8.5-10.1); Chloride 105 mmol/L (98-107); Cholesterol 166 mg/dL (200); Creatinine, Serum 1.32 mg/dL (0.70-1.30); EST Glomerular Filtration Rate 58 mL/min (>60); Est Glom Filt Rate - Afr Amer 70 mL/min (>60); Glucose 104 mg/dL (74-106); High Density Lipoprotein 39 mg/dL; Potassium 3.7 mmol/L (3.5-5.1); Sodium Level 138 mmol/L (136-145); Thyroid Stim Hormone (TSH) 3.25 uIU/mL (0.358-3.74); Triglycerides 147 mg/dL; Very Low Density Lipoprotein 29 mg/dL (5-40)
[2023-02-12 12:23] LABS: Hemoglobin A1c 5.7 % (3.8-5.6)
[2023-02-13 13:07] LABS: PSA, Free 0.67 ng/mL; PSA, Free % 19.5 % (.)
== END | disposition home or self-care (01) ==
LOC: LAB 09:28
PROVIDERS: PCP Family Medicine; Visit Provider Family Medicine
DX: E03.9 Hypothyroidism, unspecified (principal); E78.5 Hyperlipidemia, unspecified; R73.09 Other abnormal glucose; R97.20 Elevated prostate specific antigen [PSA]
CPT/HCPCS: 36415; 80048; 80061; 83036; 84153; 84154; 84443

== ENCOUNTER → 2023-08-17 | Outpatient (CLI) | payer OTHER, SELFPAY ==
[2023-08-17 09:07] LABS: Bacteria 0 SEEN /hpf (None Seen); Mucous, Urine 0 SEEN /hpf (<or=2+); Red Blood Cells-Urine 0 SEEN /hpf (0-5); Squamous Epithelial Cells - UA 0 SEEN /hpf (0-5); White Blood Cells 0 SEEN /hpf (0-5)
[2023-08-17 10:13] LABS: Absolute Lymphocyte Count 2.34 X10^3/uL (0.83-4.51); Absolute Neutrophil Count 2.8 X10^3/uL (2.0-7.7); Basophil# 0.06 X10^3/uL; Basophil% 0.9 % (0-1); Eosinophil# 0.36 X10^3/uL; Eosinophils% 5.7 % (0-5); Hematocrit 41.8 % (40-54); Lymphocyte # 2.34 X10^3/ul (0.83-4.51); Mean Corp Hgb Conc 33.5 g/dL (32-36); Mean Corpuscular Hgb 29.7 pg (27.0-32.0); Mean Corpuscular Volume 88.7 fL (80-94); Mean Platelet Vol. 10.5 fl (6.2-12.0); Monocyte# 0.75 X10^3/uL; Monocyte% 11.8 % (0-10); NRBC Flagged by Analyzer 0 % (0-5); Neutrophil # 2.79 X10^3/uL (2.7-7.7); Neutrophil % 44.1 % (47-70); Platelet Count 297 K/mm3 (150-450); RBC Distribution Width CV 13.3 % (11.6-14.6); RBC Distribution Width SD 43.3 fl (35.1-43.9); Red Blood Count 4.71 M/mm3 (4.6-6.2); White Blood Count 6.3 K/mm3 (4.4-11.0)
[2023-08-17 10:26] LABS: Color, Urine Yellow (Yellow); Glucose, Dipstick Normal (Normal); Ketone-Dipstick Negative (Negative); Leukocyte Esterase-Dipstick Negative /ul (Negative); Nitrite-Dipstick Negative (Negative); Occult Blood-Urine Negative /ul (Negative); Protein-Dipstick Negative (Negative); Urine Bilirubin Dipstick Negative (Negative); Urine Clarity Clear (Clear); Urine Urobilinogen Normal (Normal)
[2023-08-17 10:39] LABS: AST(SGOT) 31 U/L (15-37); Alanine Aminotransfer ALT/SGPT 48 U/L (16-61); Albumin, Serum 3.9 g/dL (3.2-5.0); Alkaline Phosphatase 50 U/L (45-117); Anion Gap 2 (5-15); BUN 21 mg/dL (7-18); BUN/Creat Ratio 17.6 RATIO (10-20); Calcium,Total 9.2 mg/dL (8.5-10.1); Chloride 106 mmol/L (98-107); Cholesterol 168 mg/dL (200); Creatinine, Serum 1.19 mg/dL (0.70-1.30); EST Glomerular Filtration Rate 65 mL/min (>60); Est Glom Filt Rate - Afr Amer 79 mL/min (>60); Globulin 3.8 g/dL (2.2-4.2); Glucose 113 mg/dL (74-106); High Density Lipoprotein 36 mg/dL; Potassium 3.8 mmol/L (3.5-5.1); Protein, Total 7.7 g/dL (6.4-8.2); Sodium Level 139 mmol/L (136-145); Thyroid Stim Hormone (TSH) 2.82 uIU/mL (0.358-3.74); Triglycerides 124 mg/dL; Very Low Density Lipoprotein 25 mg/dL (5-40)
== END | disposition home or self-care (01) ==
LOC: LAB 09:00
PROVIDERS: PCP Family Medicine; Referring Provider Physician Assistant; Visit Provider Physician Assistant
DX: E03.9 Hypothyroidism, unspecified (principal); R73.09 Other abnormal glucose; E78.5 Hyperlipidemia, unspecified; E66.9 Obesity, unspecified
CPT/HCPCS: 36415; 80053; 80061; 81001; 83036; 84443; 85025